=== PATIENT | female | born 1995 | race Caucasian/White ===

== ENCOUNTER 2017-08-25 13:00 | Emergency (ER) | payer MEDICAID ==
[2017-08-25 13:07] VITALS: RESP 16; TEMP 98.2
[2017-08-25] MEDS ORDERED: DiphenhydrAMINE 50 mg/ml Inj ONE (13:25)
[2017-08-25] MEDS: DiphenhydrAMINE 50 mg/ml Inj IVP STA (13:53)
--- NOTE | 2017-08-25 13:54 | ED PDOC ---
HPI: Allergic Reaction Chief Complaint (Provider): Allergic Reaction History Per: Patient History/Exam Limitations: no limitations Onset/Duration Of Symptoms: Hrs Current Symptoms Are (Timing): Still Present Context: Food Possible Cause: Unknown Associated Symptoms: Skin Rash, Swelling, Redness. denies: Dyspnea, Trouble Swallowing, Dizziness, Itching, Chest Pain Home/EMS Treatment: None Additional History Per: Patient Additional Complaint(s): This is 22 y/o Female with no PMH comes to the ED for allergic reaction. Patient had grapes and blueberries this morning for breakfast, pt started feeling headache, took 2 advils. 1 hour prior to ED visit started coughing and noticed facial swelling, rash and difficulty breathing through nose. Patient denies any chest tightness, chest pain, palpitations, vomiting, diarrhea or any GI symptoms. Patient denies any prior episodes of any allergic reactions. <Isaac Cowart - Last Filed: 08/25/17 14:07> <Sarbjit Freeman - Last Filed: 08/25/17 16:50> Time Seen by Provider: 08/25/17 13:34 Chief Complaint (Nursing): Allergic Reaction Supervising Attending Note - Supervising Attending Note The Documented history was done by the: Physician Systems Engineering Manager The documented physical exam was done by the: Physician Systems Engineering Manager The documented procedures were done by the: Physician Systems Engineering Manager - Attestation: I have personally seen and examined this patient.: Yes I have fully participated in the care of the patient.: Yes I have reviewed all pertinent clinical information: Yes - Notes: Notes:: 22 y/o F with an acute allergic reatction diffuse urticaria rash and swelling lungs ctab cv rrr no m abd nml neruo nml <Sarbjit Freeman - Last Filed: 08/25/17 16:50> Past Medical History Reviewed: Vital Signs Vital Signs: Last Vital Signs Temp 98.2 F 08/25/17 13:04 Pulse 125 H 08/25/17 13:04 Resp 16 08/25/17 13:04 BP 144/85 08/25/17 13:04 Pulse Ox 95 08/25/17 13:04 - Medical History PMH: Denies: Asthma, Diabetes, HTN, Migraine - Surgical History Surgical History: No Surg Hx - Family History Family History: States: No Known Family Hx - Social History Current smoker - smoking cessation education provided: No Ex-Smoker (has not smoked in the last 12 months): No Alcohol: None Drugs: Denies <Isaac Cowart - Last Filed: 08/25/17 14:07> Vital Signs: Last Vital Signs Temp 98.2 F 08/25/17 13:04 Pulse 125 H 08/25/17 13:04 Resp 16 08/25/17 13:04 BP 144/85 08/25/17 13:04 Pulse Ox 95 08/25/17 14:08 <Sarbjit Freeman - Last Filed: 08/25/17 16:50> - Home Medications Home Medications: Ambulatory Orders Medication Instructions Recorded Ondansetron [Zofran] 4 mg PO Q8H #9 tab 11/14/15 DiphenhydrAMINE [Benadryl] 25 mg PO QID PRN 3 Days #20 cap 08/25/17 Epinephrine HCl [Epipen 0.3 mg MR ONCE PRN #1 unit 08/25/17 Auto-Injector] Famotidine [Pepcid] 20 mg PO BID 3 Days tab 08/25/17 Prednisone [Deltasone] 40 mg PO DAILY 3 Days tablet 08/25/17 - Allergies Allergies/Adverse Reactions: Allergies Allergy/AdvReac Type Severity Reaction Status Date / Time Penicillins Allergy RASH Verified 08/25/17 13:03 Review of Systems Constitutional: Negative for: Fever, Weakness Eyes: Negative for: Pain, Vision Change ENT: Negative for: Ear Pain, Ear Discharge, Nose Pain Cardiovascular: Negative for: Chest Pain, Palpitations, Orthopnea, Paroxysmal Noc. Dyspnea Respiratory: Positive for: Cough. Negative for: Shortness of Breath, Hemoptysis , Sputum, Wheezing Gastrointestinal: Negative for: Nausea, Vomiting, Abdominal Pain, Diarrhea Genitourinary Female: Negative for: Dysuria Musculoskeletal: Negative for: Neck Pain Neurological: Negative for: Weakness, Numbness Psych: Negative for: Anxiety <Isaac Cowart - Last Filed: 08/25/17 14:07> Physical Exam - Physical Exam Appears: Positive for: No Acute Distress Head Exam: Positive for: ATRAUMATIC, NORMAL INSPECTION, NORMOCEPHALIC Skin: Positive for: Rash (mild on face and neck ) Eye Exam: Positive for: EOMI, PERRL, Other (Facial swelling including eyes, nose , cheeks and lips, NoNTENDER, No significant erythema ) ENT: Positive for: Other (some Pharyngial swelling ) Neck: Positive for: Painless ROM (rash), Supple, Trachea Midline Cardiovascular/Chest: Positive for: Regular Rate, Rhythm, Chest Non Tender. Negative for: Edema, JVD Respiratory: Positive for: Decreased Breath Sounds. Negative for: Crackles, Rales, Stridor, Wheezing, Respiratory Distress Gastrointestinal/Abdominal: Positive for: Normal Exam, Bowel Sounds, Soft. Negative for: Tenderness Extremity: Positive for: Normal ROM Neurologic/Psych: Positive for: Alert, construction controller II-XII, Oriented <Isaac Cowart - Last Filed: 08/25/17 14:07> - ECG O2 Sat by Pulse Oximetry: 95 - Progress ED Course And Treament: 22 y/o female for Allergic reaction on her face, onset one hour ago. - Monitor Respirat - CBC, CMP - PT, PTT - Benadryl 50mg IV - MethylPred 125mg IV - Pepcid 20mg IV - Serial Re-evaluations Case discussed with Dr. Freeman <Isaac Cowart - Last Filed: 08/25/17 14:07> - Laboratory Results Result Diagrams: 08/25/17 14:05 08/25/17 14:05 - ECG Pulse Ox Interpretation: Normal - Progress ED Course And Treament: sx resolved lungs clear, rash resolved has mild angioedema but improving advise close f/u with pmd and immediate return if worsening Re-evaluation Time: 16:50 Condition: Improved <Sarbjit Freeman - Last Filed: 08/25/17 16:50> Disposition <Isaac Cowart - Last Filed: 08/25/17 14:07> - Patient ED Disposition Is Patient to be Admitted: No Counseled Patient/Family Regarding: Studies Performed, Diagnosis - Disposition Disposition: Routine/Home Disposition Time: 16:49 <Sarbjit Freeman - Last Filed: 08/25/17 16:50> - Clinical Impression Clinical Impression: Acute allergic reaction - Disposition Referrals: [facility] [Outside] Condition: GOOD Prescriptions: DiphenhydrAMINE [Benadryl] 25 mg PO QID PRN 3 Days #20 cap PRN Reason: Allergy Symptoms Epinephrine HCl [Epipen Auto-Injector] 0.3 mg MR ONCE PRN #1 unit PRN Reason: Anaphylaxis Famotidine [Pepcid] 20 mg PO BID 3 Days tab Prednisone [Deltasone] 40 mg PO DAILY 3 Days tablet Instructions: Anaphylaxis (ED) Forms: [employer] ([place]ican)
[2017-08-25 14:10] LABS: HEMOGLOBIN 10.9 g/dL (12.0-16.0); MEAN CELL VOLUME 78.8 fl (81.0-99.0); MEAN CORPUSCULAR HEMOGLOBIN 24.8 pg (27.0-31.0); MEAN CORPUSCULAR HGB CONC 31.5 g/dL (33.0-37.0); RBC 4.38 Mil/uL (3.80-5.20); RED CELL DISTRIBUTION WIDTH 15.7 % (11.5-14.5); WHITE BLOOD COUNT 6.2 K/uL (4.8-10.8)
[2017-08-25 14:27] LABS: ALB/GLOB RATIO 1.4 (1.0-2.1); ALBUMIN 4.4 g/dL (3.5-5.0); ALT/SGPT 37 U/L (9-52); AST/SGOT 26 U/L (14-36); BLOOD UREA NITROGEN 8 mg/dl (7-17); GFR AFRICAN-AMERICAN > 60; GFR NON-AFRICAN AMERICAN > 60
[2017-08-25 14:38] LABS: INR 1.1 (0.9-1.2); PARTIAL THROMBOPLASTIN TIME 26.5 Seconds (25.6-37.1); PROTHROMBIN TIME 12.3 Seconds (9.8-13.1)
[2017-08-25 17:11] VITALS: BP 110/70; PULSE 72; O2SAT 98
== END 2017-08-25 17:11 | disposition home or self-care (01) ==
LOC: H.ER 13:00
DX: T78.40XA Allergy, unspecified, initial encounter (principal); Z88.0 Allergy status to penicillin
CPT/HCPCS: 80053; 85027; 85610; 85730; 96374; 96375; 99282; J1200; J2930